=== PATIENT | male | born 1965 | race Caucasian/White ===

== ENCOUNTER → 2018-01-19 10:15 | Outpatient (CLI) | payer OTHER, SELFPAY ==
[2018-01-19 10:21] LABS: Bacteria 0 SEEN /hpf (None Seen); Red Blood Cells-Urine 0 SEEN /hpf (0-5); White Blood Cells 0 SEEN /hpf (0-5)
[2018-01-19 12:33] LABS: Color, Urine Yellow (Yellow); Glucose, Dipstick Normal (Normal); Ketone-Dipstick Negative (Negative); Leukocyte Esterase-Dipstick Negative /ul (Negative); Nitrite-Dipstick Negative (Negative); Occult Blood-Urine Negative /ul (Negative); Protein-Dipstick Negative (Negative); Specific Gravity, Urine 1.025 (1.002-1.030); Urine Bilirubin Dipstick Negative (Negative); Urine Clarity Clear (Clear); Urine Urobilinogen Normal (Normal)
[2018-01-19 12:44] LABS: Absolute Lymphocyte Count 1.28 X10^3/ul (0.83-4.51); Absolute Neutrophil Count 2.6 X10^3/uL (2.0-7.7); Basophil% 2.2 % (0-1); Eosinophil# 0.17 X10^3/uL; Eosinophils% 3.8 % (0-5); Hematocrit 40.4 % (40-54); Hemoglobin 13.8 g/dl (13.0-16.5); Lymphocyte # 1.28 X10^3/ul (4.0); Lymphocyte % 28.3 % (19-41); Mean Corp Hgb Conc 34.2 g/gl (32-36); Mean Corpuscular Hgb 29.2 pg (27.0-32.0); Mean Corpuscular Volume 85.6 fL (80-94); Mean Platelet Vol. 10.3 fl (6.2-12.0); Monocyte# 0.41 X10^3/uL; Monocyte% 9.1 % (0-10); Neutrophil # 2.56 X10^3/uL (2.7-7.7); Neutrophil % 56.6 % (47-70); Platelet Count 246 K/mm3 (150-450); RBC Distribution Width CV 12.9 % (11.6-14.6); RBC Distribution Width SD 39.4 fl (35.1-43.9); Red Blood Count 4.72 M/mm3 (4.6-6.2); White Blood Count 4.5 K/mm3 (4.4-11.0)
[2018-01-19 12:57] LABS: POSITIVE COUNT NO; POSITIVE DIFFERENTIAL NO; POSITIVE MORPHOLOGY NO
[2018-01-19 13:03] LABS: Mucous, Urine RARE /hpf (<or=2+); Squamous Epithelial Cells - UA 0-5 SEEN /hpf (0-5)
[2018-01-19 13:15] LABS: AST(SGOT) 36 U/L (15-37); Alanine Aminotransfer ALT/SGPT 53 U/L (16-61); Albumin, Serum 3.7 g/dL (3.2-5.0); Alkaline Phosphatase 90 U/L (45-117); Anion Gap 7 (5-15); BUN 17 mg/dL (7-18); Calcium,Total 9.1 mg/dL (8.5-10.1); Chloride 106 mmol/L (98-107); Cholesterol 235 mg/dL (200); Creatinine, Serum 0.94 mg/dL (0.70-1.30); EST Glomerular Filtration Rate 89 mL/min (>60); Est Glom Filt Rate - Afr Amer 107 mL/min (>60); Globulin 3.8 g/dL (2.2-4.2); Glucose 96 mg/dL (74-106); High Density Lipoprotein 48 mg/dL; Potassium 4.7 mmol/L (3.5-5.1); Protein, Total 7.5 g/dL (6.4-8.2); Sodium Level 138 mmol/L (136-145); Thyroid Stim Hormone (TSH) 1.42 uIU/mL (0.358-3.74); Triglycerides 168 mg/dL; Very Low Density Lipoprotein 34 mg/dL (5-40)
== END ==
PROVIDERS: Family Provider Family Medicine; PCP Family Medicine; Visit Provider Family Medicine
DX: I10 Essential (primary) hypertension (principal)
CPT/HCPCS: 36415; 80053; 80061; 81001; 84443; 85025

== ENCOUNTER → 2018-01-28 10:29 | Outpatient (CLI) | payer OTHER, SELFPAY ==
--- NOTE | 2018-01-28 10:32 | STE_ITS ---
Reason For Study: ABN. ECG Stress Results Protocol: [facility] Protocol Maximum Predicted HR: 167 bpm Target HR: 142 bpm% Max imum Predicted HR: 93 % DurationHeart Rate Stage (mm:ss) (bpm) BPCom ment BASELINE 61 142/92 3 CC TOTAL DEFINITY USED FOR TEST STAGE 1 3:00 13 4 182/74 STAGE 2 3:00 15 1 220/82 STAGE 3 2:00 15 5 / RECOVERY 90 152/90 Stress Duration: 8:00 mm:ss Maximum Stress HR: 155 bpm Baseline Echocardiogram Findings The estimated ejection fraction is 65 %. Stress Echo Wall motion Data Resting WMIntermediate WMStress WM Resting Wall Motion Wall Motion Stress No regional wall motion No regional wall motion abnormalities noted. abnormalities noted. EKG Data Normal intervals are noted. The patient exercised according to the regular [facility] protocol for a total duration of 8:01. The maximum heart rate attained was 160 beats per minute. This was 95% of maximum predicted heart rate. The patient exercised into stage 3 of the [facility] protocol. During stress, there were no ST or T wave changes noted to suggest ischemia. No clinical angina was noted. Interpretation Summary The estimated ejection fraction is 65 %. Normal adequate treadmill echocardiogram. Negative for ischemia by EKG and echocardiographic criteria. No anginal symptoms noted. Rare PVCs noted. Hypertensive blood pressure response to exercise. Average exercise capacity for age. Final LVEF is 70%, decreased sensitivity due to poor echo windows requiring Definity agent. Test terminated due to fatigue. No complications. Ordering Physician: Rickey Huerta Performed By: Fely Monk, JESUS, RVT
== END ==
PROVIDERS: Family Provider Family Medicine; PCP Family Medicine; Visit Provider Family Medicine
DX: R94.31 Abnormal electrocardiogram [ECG] [EKG] (principal)
CPT/HCPCS: 93017; 93350; Q9957; A4216; C8928

== ENCOUNTER → 2018-03-17 09:16 | Outpatient (CLI) | payer OTHER, SELFPAY ==
[2018-03-17 10:27] LABS: Anion Gap 7 (5-15); BUN 20 mg/dL (7-18); BUN/Creat Ratio 18.7 RATIO (10-20); Calcium,Total 9.5 mg/dL (8.5-10.1); Chloride 104 mmol/L (98-107); Creatinine, Serum 1.07 mg/dL (0.70-1.30); EST Glomerular Filtration Rate 77 mL/min (>60); Est Glom Filt Rate - Afr Amer 93 mL/min (>60); Glucose 95 mg/dL (74-106); Sodium Level 137 mmol/L (136-145)
== END ==
PROVIDERS: Family Provider Family Medicine; PCP Family Medicine; Visit Provider Family Medicine
DX: I10 Essential (primary) hypertension (principal)
CPT/HCPCS: 36415; 80048

== ENCOUNTER → 2018-05-13 10:09 | Outpatient (CLI) | payer OTHER, SELFPAY ==
[2018-05-13 12:23] LABS: Anion Gap 8 (5-15); BUN 22 mg/dL (7-18); BUN/Creat Ratio 24.6 RATIO (10-20); Calcium,Total 9.1 mg/dL (8.5-10.1); Chloride 106 mmol/L (98-107); EST Glomerular Filtration Rate 94 mL/min (>60); Est Glom Filt Rate - Afr Amer 114 mL/min (>60); Glucose 94 mg/dL (74-106); Potassium 3.9 mmol/L (3.5-5.1); Sodium Level 139 mmol/L (136-145)
== END ==
PROVIDERS: Family Provider Family Medicine; PCP Family Medicine; Visit Provider Family Medicine
DX: I10 Essential (primary) hypertension (principal)
CPT/HCPCS: 36415; 80048

== ENCOUNTER → 2018-06-11 08:10 | Outpatient (CLI) | payer OTHER, SELFPAY ==
[2018-06-11 10:56] LABS: BUN 18 mg/dL (7-18); Creatinine, Serum 1.02 mg/dL (0.70-1.30); Glucose 96 mg/dL (74-106)
[2018-06-11 10:57] LABS: Anion Gap 7 (5-15); BUN/Creat Ratio 17.6 RATIO (10-20); Calcium,Total 9.1 mg/dL (8.5-10.1); Chloride 104 mmol/L (98-107); EST Glomerular Filtration Rate 81 mL/min (>60); Est Glom Filt Rate - Afr Amer 98 mL/min (>60); Potassium 3.9 mmol/L (3.5-5.1); Sodium Level 137 mmol/L (136-145)
== END ==
PROVIDERS: Family Provider Family Medicine; PCP Family Medicine; Visit Provider Family Medicine
DX: I10 Essential (primary) hypertension (principal)
CPT/HCPCS: 36415; 80048

== ENCOUNTER 2019-03-05 06:20 | Emergency (ER) | payer OTHER, SELFPAY ==
[2019-03-05 06:22] VITALS: BP 164/105; PULSE 73; RESP 18; TEMP 36.8; O2SAT 97; BMI 34.9
--- NOTE | 2019-03-05 06:39 | CT_ITS ---
STUDY: CT ABDOMEN AND PELVIS WITHOUT CONTRAST REASON FOR EXAM: Male, 53 years old. Left-sided flank pain. RADIATION DOSAGE (If Supplied By Facility): CTDIvol = ( 21.03 ) mGy, DLP = ( 1119.17 ) mGycm TECHNIQUE: Transaxial images were obtained from the dome of the diaphragm to the symphysis pubis without oral contrast, and without intravenous contrast. Sagittal and coronal images were reconstructed. Individualized dose optimization techniques were used for this CT. COMPARISON: None. FINDINGS: The visualized lung bases are unremarkable. The visualized portions of the heart are within normal limits. Normal liver. Normal gallbladder and extrahepatic biliary system. Normal spleen. Normal pancreas. Normal bilateral adrenal glands. There are medullary calcifications. There is a nonobstructing calculus lower pole of the right kidney measuring about 3 mm in size. There is left-sided perinephric stranding. There is mild left-sided hydronephrosis and hydroureter secondary to a mid ureteral calculus measuring approximately 4 mm in greatest dimension. Normal visualized stomach. There is no evidence for dilated bowel, ascites or pneumoperitoneum. The small bowel has a grossly normal appearance. The descending colon is not distended which gives the appearance of thickened arenas. Most of this stool is in the ascending colon and transverse colon. There are scattered colonic diverticula. The appendix is visualized and appears normal. There is mild atherosclerotic calcification of the abdominal aorta with elongation and tortuosity, but without a demonstrated aneurysm. There is venous distention of the inferior vena cava (IVC). Normal retroperitoneum. Normal urinary bladder. Normal visualized prostate gland. There appear to be bilateral inguinal hernias containing fat. There is an umbilical hernia containing fat. There are diffuse degenerative changes of the visualized spine. There is severe acquired canal stenosis at L4-5. CT/Abdomen/Pelvis without Cont IMPRESSION: Mild left-sided hydronephrosis and hydroureter secondary to mid ureteral calculus. Electronically Signed: Taylor Waters MD at 8:12 EDT , Service support ,
[2019-03-05] MEDS: Morphine 4 MG/ML Syringe IV ×2 (06:43→07:52)
[2019-03-05] MEDS: 0.9% Normal Saline 1,000 ML 250 ML IV (06:43)
[2019-03-05] MEDS: Ketorolac 30 MG/ML Syringe IV (06:44)
[2019-03-05] MEDS: Ondansetron 4 MG/2 ML Vial IV (06:44)
--- NOTE | 2019-03-05 06:56 | ED.DCSUM_ITS ---
- ER Visit Summary Date of Service: 03/05/19 Chief Complaint: Left flank pain History of Present Illness: The patient is a 53 M who presents emergency department with left flank pain. Patient states that it was sudden onset this morning after urination. Left flank into left lower quadrant. He has a history of a kidney stone one time. He states this feels similar. No fevers. He notes a history of hypertension. He notes nausea but no vomiting. Physical Examination: Afebrile vital signs are stable Gen: Well-nourished well-developed the patient appears in pain. Head: Normocephalic atraumatic Eyes: Perrl EOMI ENT: TMs clear no rhinorrhea moist mucous membranes Neck: Supple no lymphadenopathy no JVD nontender CVS: Regular rate rhythm no murmurs normal S1-S2 Respiratory: No distress clear to auscultation bilaterally chest nontender Abdomen: Soft nontender nondistended normal bowel sounds no masses Back: Nontender Extremity: Nontender no edema Skin: Normal color no rash Neuro: alert orientated ?3 CN II-XII intact normal strength sensation reflexes gait cerebellar Psych: Normal affect normal mood Test Results: CT flank and BMP and urinalysis were ordered. BMP showed a normal creatinine. CT of the flank demonstrated a mid ureteral stone of about 4-5 mm. Emergency Department Course and Treatment: IV was established the patient received IV fluids Toradol morphine and Zofran. Impression: 1. Left flank pain 2. Left ureterolithiasis This note was generated with [employer] dictation software. It may contain incorrect words, spelling, and punctuation that were not noted in review of the chart prior to signing ED Disposition - Plan for ED Patient: Disposition: Home or Assisted Living Instructions: ED Stone Renal W Colic Prescriptions: Hydrocodone Bitart/Apap 5-325 [[place] 5MG-325MG] 1 tab PO Q6H PRN PRN 3 Days #12 tab PRN Reason: Pain Ondansetron [Zofran Odt] 4 mg PO Q6H PRN PRN #10 tab PRN Reason: Nausea Referrals: Rickey Huerta MD [Primary Care Provider] - 3-5 Days if not improving Kam Marrufo MD [STAFF PHYSICIAN] - (for urology)
[2019-03-05 06:57] LABS: Anion Gap 5 (5-15); BUN 22 mg/dL (7-18); BUN/Creat Ratio 20.8 RATIO (10-20); Calcium,Total 8.4 mg/dL (8.5-10.1); Chloride 107 mmol/L (98-107); Creatinine, Serum 1.06 mg/dL (0.70-1.30); EST Glomerular Filtration Rate 77 mL/min (>60); Est Glom Filt Rate - Afr Amer 93 mL/min (>60); Estimated Creatinine Clearance 82.26 ml/min; Glucose 116 mg/dL (74-106); Potassium 3.6 mmol/L (3.5-5.1); Sodium Level 138 mmol/L (136-145)
[2019-03-05 08:46] LABS: Mucous, Urine 0 SEEN /hpf (<or=2+); Squamous Epithelial Cells - UA 0 SEEN /hpf (0-5)
[2019-03-05 08:59] LABS: Color, Urine Yellow (Yellow); Glucose, Dipstick Normal (Normal); Ketone-Dipstick 15 mg/dl (Negative); Leukocyte Esterase-Dipstick 25 /ul (Negative); Nitrite-Dipstick Positive (Negative); Occult Blood-Urine 250 /ul (Negative); Protein-Dipstick 100 mg/dl (Negative); Specific Gravity, Urine 1.025 (1.002-1.030); Urine Clarity Cloudy (Clear); Urine Urobilinogen 1 mg/dl (Normal)
[2019-03-05 09:04] LABS: Urine Bilirubin Dipstick 1 mg/dL (Negative)
[2019-03-05 09:09] VITALS: BP 147/103; PULSE 75; RESP 18; O2SAT 97
[2019-03-05 09:13] LABS: Bacteria 1+ /hpf (None Seen); Red Blood Cells-Urine > 100 SEEN /hpf (0-5); White Blood Cells 10-25 SEEN /hpf (0-5)
[2019-03-05] MEDS: Ceftriaxone 1 GM/50 ML BAG IV (09:24)
--- NOTE | 2019-03-05 10:09 | ED.VISSUMM ---
- ER Visit Summary Date of Service: 03/05/19 Chief Complaint: [Addendum to initial dictation by Dr. Neil Carrizales] History of Present Illness: The patient is a 53 M [presented with flank pain that started this morning. Patient was fully evaluated by Dr. Carrizales who obtained lab work as well as ordered a urine and CT scan of the flank. It was noted on the CT scan that patient had a 4 mm left mid ureteral stone with mild hydronephrosis. Urinalysis was eventually obtained that was positive for nitrites as well as greater than 100 RBCs and 10-25 WBCs and +1 bacteria.] Physical Examination: [] Test Results: [] Emergency Department Course and Treatment: [] Treatment Plan: [Patient was given Rocephin 1 g IV. Patient was given a repeat dose of morphine 4 mg IV as his pain did return. I had a discussion with the patient regarding admission for pain control versus home and at this point he is rating his pain a 1 out of 10 and would like to try to go home and see if he can pass the stone on his own. I will start patient on Bactrim and patient also was written for Zofran and [place]. Patient advised to return if worsening pain, fever, vomiting, or condition should worsen anyway.] Disposition: [Discharged home in stable condition] Impression: [Kidney stone with colic UTI] This note was generated with [employer] dictation software. It may contain incorrect words, spelling, and punctuation that were not noted in review of the chart prior to signing ED Disposition - Plan for ED Patient: Disposition: Home or Assisted Living Instructions: ED Stone Renal W Colic Prescriptions: Hydrocodone Bitart/Apap 5-325 [[place] 5MG-325MG] 1 tab PO Q6H PRN PRN 3 Days #12 tab PRN Reason: Pain Ondansetron [Zofran Odt] 4 mg PO Q6H PRN PRN #10 tab PRN Reason: Nausea Referrals: Kam Marrufo MD [STAFF PHYSICIAN] - (for urology) Rickey Huerta MD [Primary Care Provider] - 3-5 Days if not improving
--- NOTE | 2019-03-05 10:12 | DCINST.ED_ITS ---
ED Disposition - Plan for ED Patient: Disposition: Home or Assisted Living Instructions: ED Stone Renal W Colic Prescriptions: Hydrocodone Bitart/Apap 5-325 [[place] 5MG-325MG] 1 tab PO Q6H PRN PRN 3 Days #12 tab PRN Reason: Pain Ondansetron [Zofran Odt] 4 mg PO Q6H PRN PRN #10 tab PRN Reason: Nausea Smz/Tmp Ds [Bactrim Ds] 1 tab PO BID #14 tab Referrals: Kam Marrufo MD [STAFF PHYSICIAN] - (for urology) Rickey Huerta MD [Primary Care Provider] - 3-5 Days if not improving
--- NOTE | 2019-03-05 10:12 | ED.DCSUM_ITS ---
- ER Visit Summary Date of Service: 03/05/19 Chief Complaint: [Addendum to initial dictation by Dr. Neil Carrizales] History of Present Illness: The patient is a 53 M [presented with flank pain that started this morning. Patient was fully evaluated by Dr. Carrizales who obtained lab work as well as ordered a urine and CT scan of the flank. It was noted on the CT scan that patient had a 4 mm left mid ureteral stone with mild hydronephrosis. Urinalysis was eventually obtained that was positive for nitrites as well as greater than 100 RBCs and 10-25 WBCs and +1 bacteria.] Physical Examination: [] Test Results: [] Emergency Department Course and Treatment: [] Treatment Plan: [Patient was given Rocephin 1 g IV. Patient was given a repeat dose of morphine 4 mg IV as his pain did return. I had a discussion with the patient regarding admission for pain control versus home and at this point he is rating his pain a 1 out of 10 and would like to try to go home and see if he can pass the stone on his own. I will start patient on Bactrim and patient also was written for Zofran and [place]. Patient advised to return if worsening pain, fever, vomiting, or condition should worsen anyway.] Disposition: [Discharged home in stable condition] Impression: [Kidney stone with colic UTI] This note was generated with [employer] dictation software. It may contain incorrect words, spelling, and punctuation that were not noted in review of the chart prior to signing ED Disposition - Plan for ED Patient: Disposition: Home or Assisted Living Instructions: ED Stone Renal W Colic Prescriptions: Hydrocodone Bitart/Apap 5-325 [[place] 5MG-325MG] 1 tab PO Q6H PRN PRN 3 Days #12 tab PRN Reason: Pain Ondansetron [Zofran Odt] 4 mg PO Q6H PRN PRN #10 tab PRN Reason: Nausea Referrals: Kam Marrufo MD [STAFF PHYSICIAN] - (for urology) Rickey Huerta MD [Primary Care Provider] - 3-5 Days if not improving
[2019-03-05 10:33] VITALS: BP 146/99; PULSE 66; RESP 17; O2SAT 95
--- NOTE | 2019-03-05 10:34 | ED.RN ---
IV DC'ED, CATHETER INTACT, SMALL GAUZE DRESSING PLACED. DISCHARGE INSTRUCTIONS GIVEN TO AND REVIEWED WITH PATIENT, PATIENT DENIES QUESTIONS OR CONCERNS AND VOICES UNDERSTANDING OF DISCHARGE INSTRUCTIONS. PT AMBULATES OUT OF ROOM WITHOUT DIFFICULTY.
== END 2019-03-05 10:35 | disposition home or self-care (01) ==
PROVIDERS: Emergency Provider Emergency Medicine; Family Provider Family Medicine; PCP Family Medicine
DX: N13.2 Hydronephrosis with renal and ureteral calculous obstruction (principal); I10 Essential (primary) hypertension; Z87.442 Personal history of urinary calculi
CPT/HCPCS: 74176; 80048; 81001; 87086; 87088; 96365; 96375; 96376; 99282; J7030; A4216; J2405

== ENCOUNTER → 2019-03-18 | Outpatient (CLI) | payer OTHER, SELFPAY ==
[2019-03-05 06:22] VITALS: BMI 34.9
[2019-03-18 10:53] LABS: ALB/GLOB Ratio 1.2 RATIO (0.9-2.4); AST(SGOT) 35 U/L (15-37); Alanine Aminotransfer ALT/SGPT 45 U/L (16-61); Albumin, Serum 3.8 g/dL (3.2-5.0); Alkaline Phosphatase 90 U/L (45-117); Anion Gap 6 (5-15); BUN 23 mg/dL (7-18); BUN/Creat Ratio 24.8 RATIO (10-20); Calcium,Total 9.1 mg/dL (8.5-10.1); Chloride 104 mmol/L (98-107); Creatinine, Serum 0.93 mg/dL (0.70-1.30); EST Glomerular Filtration Rate 90 mL/min (>60); Est Glom Filt Rate - Afr Amer 109 mL/min (>60); Globulin 3.2 g/dL (2.2-4.2); Glucose 96 mg/dL (74-106); Potassium 4.3 mmol/L (3.5-5.1); Sodium Level 135 mmol/L (136-145)
== END | disposition home or self-care (01) ==
LOC: MFPLAB 08:50
PROVIDERS: Family Provider Family Medicine; PCP Family Medicine; Referring Provider Family Medicine; Visit Provider Family Medicine
DX: I10 Essential (primary) hypertension (principal)
CPT/HCPCS: 36415; 80053; 83735

== ENCOUNTER 2019-07-13 08:05 | Emergency (ER) | payer OTHER, SELFPAY ==
[2019-07-13 08:06] VITALS: BP 157/89; PULSE 77; RESP 16; TEMP 36.6; O2SAT 99; BMI 34.4
--- NOTE | 2019-07-13 08:21 | CT_ITS ---
STUDY: CT ABDOMEN AND PELVIS WITHOUT CONTRAST REASON FOR EXAM: Male, 54 years old. Renal colic on the left RADIATION DOSAGE (If Supplied By Facility): CTDIvol = ( 18.60 ) mGy, DLP = ( 980.77 ) mGycm TECHNIQUE: Transaxial images were obtained from the dome of the diaphragm to the symphysis pubis without oral contrast, and without intravenous contrast. Sagittal and coronal images were reconstructed. Individualized dose optimization techniques were used for this CT. COMPARISON: 03/05/2019. FINDINGS: The visualized lung bases are unremarkable. The visualized portions of the heart are within normal limits. Normal liver. Normal gallbladder and extrahepatic biliary system. Normal spleen. Normal pancreas. Normal bilateral adrenal glands. Normal right kidney.igLeft obstructive uropathy due to 4.7 mm stone along the distal ureter, aboutreter, about 1.6 cm proximal to the UVJ, with mild left hydroureteronephrosis and mild to moderate left perinephric infiltration. Bilateral medullary nephrocalcinosis of the kidneys. Normal visualizeNormal small intestine.l intestine. Uncomplicated colonic diverticulosis of colon. The appendix is visualized and appears normal. Mild calcification of the abdomiNormal inferior vena cava.r Normal retroperitoneum.operitoneum. Normal urinar ladder There is a small umbilical hernia containing fat. There are diffuse degenerative changes of the visualized lumbar spine. CT/Abdomen/Pelvis without Cont IMPRESSION: Left obstructive uropathy due to 4.7 mm stone along the distal ureter, about 1.6 cm proximal to the UVJ, with mild left hydroureteronephrosis and mild to moderate left perinephric infiltration. Bilateral medullary nephrocalcinosis of the kidneys. Appendix is normal. Uncomplicated colonic diverticulosis. Electronically Signed: Luis Daniel Blake MD at 9:30 EDT Tel [phone], Service support ,
--- NOTE | 2019-07-13 08:30 | ED.DCSUM_ITS ---
- ER Visit Summary Date of Service: 07/13/19 Chief Complaint: Left flank pain History of Present Illness: The patient is a [address] Huerta. He reports that he has left flank pain that began at 330 this morning. It began abruptly. It is an aching pain is 7 out of 10 severity currently and at worst. States the pain is worsened by moving and relieved by nothing. Has had nausea and diaphoresis with this. Is not vomited. No diarrhea. His last bowel movement was yesterday. No melena or hematochezia. He does report he had dysuria and frequency with this. He denies any hematuria. Physical Examination: Vitals: Stable. Afebrile. General: Well-nourished and well-developed. Head: Normocephalic atraumatic. Neck: Supple, no lymphadenopathy. No JVD. Nontender. Cardiovascular: Regular rate and rhythm. No murmurs. Respiratory: No respiratory distress. Clear to auscultation bilaterally. Abdominal: Soft, mild left lower quadrant tenderness to palpation, nondistended, normal bowel sounds. No guarding, rebound, or peritoneal signs. Back: Mild left CVA tenderness. Extremities: Nontender, no edema. Skin: Normal color, no rash. Neurologic: Alert and oriented ?3. Cranial nerves II through XII are intact. Normal strength and sensation. Psych: Normal affect. Test Results: UA shows no evidence of infection. Clinical Impression(s) from Imaging Studies Abdomen/Pelvis CT 07/13/19 08:21 IMPRESSION: Left obstructive uropathy due to 4.7 mm stone along the distal ureter, about 1.6 cm proximal to the UVJ, with mild left hydroureteronephrosis and mild to moderate left perinephric infiltration. Bilateral medullary nephrocalcinosis of the kidneys. Appendix is normal. Uncomplicated colonic diverticulosis. Electronically Signed: Luis Daniel Blake MD at 9:30 EDT Tel [phone], Service support , Emergency Department Course and Treatment: Patient had an IV placed. He was given a liter normal saline. He was given Toradol, Zofran, morphine IV. He is resting more comfortably. Treatment Plan: Patient will be discharged with Zofran, naproxen, Percocet, and Flomax. He will also be given a urine strainer. Instructed to follow-up with Dr. Marrufo in 1 week if not improving. Return to the emergency department for any worsening symptoms. Disposition: To home in improved and stable condition. Impression: 1. Left ureterolithiasis. This note was generated with [employer] dictation software. It may contain incorrect words, spelling, and punctuation that were not noted in review of the chart prior to signing ED Disposition - Plan for ED Patient: Instructions: KIDNEY STONE w/ Colic Prescriptions: Tamsulosin HCl [Flomax] 0.4 mg PO DAILY #7 cap Prescription Printed Naproxen [Naprosyn] 500 mg PO BID #14 tab Prescription Printed Oxycodone HCl/Acetaminophen [Percocet 5/325] 1 tab PO Q6H PRN PRN 5 Days #20 tab PRN Reason: Pain Prescription Printed Ondansetron [Zofran Odt] 4 mg PO Q8H PRN PRN #10 tab PRN Reason: Nausea Prescription Printed Referrals: Kam Marrufo MD [STAFF PHYSICIAN] - 1 Week if not improving
[2019-07-13] MEDS: Ondansetron 4 MG/2 ML Vial IV (08:40)
[2019-07-13] MEDS: Ketorolac 30 MG/ML Syringe IV (08:40)
[2019-07-13] MEDS: Morphine 4 MG/ML Syringe IV (08:43)
[2019-07-13] MEDS: 0.9% Normal Saline 1,000 ML 250 ML IV (08:44)
[2019-07-13 09:01] LABS: Color, Urine Yellow (Yellow); Glucose, Dipstick Normal (Normal); Ketone-Dipstick 5 mg/dl (Negative); Leukocyte Esterase-Dipstick Negative /ul (Negative); Nitrite-Dipstick Negative (Negative); Occult Blood-Urine 10 /ul (Negative); Protein-Dipstick 15 mg/dl (Negative); Specific Gravity, Urine 1.025 (1.002-1.030); Urine Bilirubin Dipstick Negative (Negative); Urine Clarity Clear (Clear); Urine Urobilinogen Normal (Normal)
[2019-07-13 09:17] LABS: Bacteria 2+ /hpf (None Seen); Red Blood Cells-Urine 0-5 SEEN /hpf (0-5); Squamous Epithelial Cells - UA 0-5 SEEN /hpf (0-5); White Blood Cells 0-5 SEEN /hpf (0-5)
[2019-07-13 09:18] LABS: Mucous, Urine 3+ /hpf (<or=2+)
[2019-07-13 10:11] VITALS: BP 131/71; PULSE 63; RESP 16; O2SAT 100
== END 2019-07-13 10:14 | disposition home or self-care (01) ==
PROVIDERS: Emergency Provider Emergency Medicine; Family Provider Family Medicine; PCP Family Medicine
DX: N13.2 Hydronephrosis with renal and ureteral calculous obstruction (principal); E83.59 Other disorders of calcium metabolism; N29 Other disorders of kidney and ureter in diseases classified elsewhere; K57.30 Diverticulosis of large intestine without perforation or abscess without bleeding; Z87.442 Personal history of urinary calculi
CPT/HCPCS: 74176; 81001; 96361; 96374; 96375; 99284; J7030; A4216; J2405

== ENCOUNTER → 2019-08-18 08:57 | Outpatient (CLI) | payer OTHER, SELFPAY ==
--- NOTE | 2019-08-18 09:00 | RAD_ITS ---
STUDY: X-RAY - ABDOMEN/PELVIS REASON FOR EXAM: Male, 54 years old. Left renal calculus. TECHNIQUE: Single AP view of the abdomen / pelvis. COMPARISON: Comparison is made with prior CT scan and pelvis dated July 13, 2019. FINDINGS: Normal visualized lung bases. There is a moderate amount of colonic fecal material. A 4 mm calcification is seen in the left hemipelvis. This may lie within this portion left ureter. A rounded phlebolith is seen in the right hemipelvis. Normal soft tissue structures. Normal visualized osseous structures. RAD/Abdomen Single View IMPRESSION: Findings suggestive of a small calculus in the distal portion of the left ureter. Electronically Signed: Santo Mack, at 11:00 EDT , Service support ,
== END ==
PROVIDERS: Family Provider Family Medicine; PCP Family Medicine; Referring Provider Nurse Practitioner Adult Health; Visit Provider Nurse Practitioner Adult Health
DX: N20.1 Calculus of ureter (principal)
CPT/HCPCS: 74018

== ENCOUNTER 2019-08-26 13:25 | Day surgery (SDC) | payer OTHER, SELFPAY ==
[2019-08-26] VITALS (8 sets, daily range): BP systolic 120–128; BP diastolic 84–98; PULSE 68–90; RESP 16; TEMP 36.3–36.6; O2SAT 93–97; BMI 35.6
--- NOTE | 2019-08-26 11:30 | RAD_ITS ---
STUDY: X-RAY - ABDOMEN/PELVIS REASON FOR EXAM: Male, 54 years old. History of left-sided kidney stone. TECHNIQUE: Single AP view of the abdomen / pelvis. COMPARISON: Comparison is made with prior examination dated August 18, 2019. FINDINGS: Normal visualized lung bases. There is an unremarkable bowel gas pattern. The visualized liver, spleen and kidneys are grossly normal in size and morphology. Stable appearance of the small calcific densities in the pelvis. Normal visualized osseous structures. RAD/Abdomen Single View IMPRESSION: Stable examination. Electronically Signed: Santo Mack, at 15:24 EDT , Service support ,
[2019-08-26] MEDS: Lactated Ringers 1,000 ML 100 ML IV (14:58)
[2019-08-26] MEDS: Cefazolin 2 GM in 0.9% Normal Saline 100 ML IV (15:19)
--- NOTE | 2019-08-26 16:18 | DCINST_ITS ---
Discharge Diet: Light diet - advance as tolerated Discharge Activity: Return to Normal Activity Call your doctor if your incision/area has: Sudden Increased Bleeding Allergies/Adverse Reactions: Allergies No Known Allergies Allergy (Verified 08/26/19 14:16) Medications to take at Discharge Lisinopril [Zestril] 10 mg PO DAILY 10/28/16 Hydrochlorothiazide [Hctz] 25 mg PO DAILY 03/05/19 Calcium Carbonate/Simethicone [[place] Heartburn+Gas] 1 ea PO DAILY PRN PRN 08/26/19 Oxycodone HCl/Acetaminophen [Percocet 5/325] 1 tab PO Q4H PRN PRN 3 Days tab 08/26/19 The following prescriptions were given: Oxycodone HCl/Acetaminophen [Percocet 5/325] 1 tab PO Q4H PRN PRN 3 Days tab PRN Reason: Pain Prescription Printed Primary Care Physician: Rickey Huerta MD [Primary Care Provider] - Test Results: Test results from this visit will be discussed in further detail at your follow- up appointment, if applicable. Please Follow Up With: Kam Marrufo MD When: in 2 weeks, please call to make an appointment.
--- NOTE | 2019-08-26 16:19 | OP.PCM_ITS ---
Report of Operation Date of Procedure: 08/26/19 Pre-Operative Diagnosis: Left ureteral calculi Post-Operative Diagnosis: Same Surgery/Procedure Performed:: Cystoscopy placement of left ureteral catheter and left ESWL no stent Description of Surgical Findings:: 54-year-old male taken back to the operating room at the smooth induction of general anesthesia he was placed in dorsolithotomy position went to the bladder with a 21 [place] rigid cystourethroscope entire length urethra is normal prostate was normal I think cannulated the left ureteral orifice with a Glidewire advance a wire up in the kidney we can confirm the stone in the distal pelvis we then proceeded with shockwave lithotripsy and we treated the stone 3000 shockwaves at a rate of 90 up to 7 kV the stone broke up really well ,remove the wire, drained the bladder, patient anesthetic was reversed appeared to be a successful treatment of the stone no stent was placed taken back to PACU in good condition we will see him back in a few weeks with a checkup. Type of Anesthesia:: General
== END 2019-08-26 17:51 | disposition home or self-care (01) ==
LOC: SDC 13:25 → AC 13:49
PROVIDERS: Family Provider Family Medicine; PCP Family Medicine; Referring Provider Urology; Visit Provider Urology
PROC: (CPT 50590; principal; 2019-08-26 15:00)
DX: N20.1 Calculus of ureter (principal); Z87.442 Personal history of urinary calculi; I10 Essential (primary) hypertension; Z79.899 Other long term (current) drug therapy
CPT/HCPCS: 00873; 50590; 74018; J7120; C1769; J2405

== ENCOUNTER → 2019-09-12 15:20 | Outpatient (CLI) | payer OTHER, SELFPAY ==
[2019-08-26 14:17] VITALS: BMI 35.6
--- NOTE | 2019-09-12 15:23 | RAD_ITS ---
STUDY: X-RAY - ABDOMEN/PELVIS REASON FOR EXAM: Male, 54 years old. Left-sided flank pain TECHNIQUE: AP supine and upright views of the abdomen and pelvis. COMPARISON: 08/26/2019 FINDINGS: Normal visualized lung bases. There is an unremarkable bowel gas pattern. There is no demonstrated free abdominal air. The visualized liver, spleen and kidneys are grossly normal in size and morphology. No demonstrated calcifications over either renal shadow, there is a stable lucent centered calcification in the right hemipelvis which could be within the distal right ureter. A previously described stone in the left hemipelvis no longer identified which may have passed. Normal soft tissue structures. There are diffuse degenerative changes of the visualized lumbar spine. RAD/Abdomen Single View IMPRESSION: Possible right ureterolithiasis No interval change since the previous study Electronically Signed: Reji Frazier MD at 11:02 EDT , Service support ,
[2019-09-12 16:42] LABS: Anion Gap 7 (5-15); BUN 18 mg/dL (7-18); Calcium,Total 9.3 mg/dL (8.5-10.1); Chloride 104 mmol/L (98-107); EST Glomerular Filtration Rate 82 mL/min (>60); Est Glom Filt Rate - Afr Amer 100 mL/min (>60); Glucose 118 mg/dL (74-106); Potassium 3.6 mmol/L (3.5-5.1); Sodium Level 138 mmol/L (136-145)
== END ==
PROVIDERS: Family Provider Family Medicine; PCP Family Medicine; Referring Provider Urology; Visit Provider Urology
DX: N20.0 Calculus of kidney (principal)
CPT/HCPCS: 36415; 74018; 80048

== ENCOUNTER → 2019-09-13 08:25 | Outpatient (CLI) | payer OTHER, SELFPAY ==
[2019-08-26 14:17] VITALS: BMI 35.6
[2019-09-13 11:01] LABS: Hemoglobin A1c 6.1 % (4.2-6.3)
== END ==
PROVIDERS: Family Provider Family Medicine; PCP Family Medicine; Referring Provider Family Medicine; Visit Provider Family Medicine
DX: R73.09 Other abnormal glucose (principal)
CPT/HCPCS: 36415; 83036

== ENCOUNTER 2019-09-15 18:07 | Emergency (ER) | payer OTHER, SELFPAY ==
[2019-08-26 14:17] VITALS: BMI 35.6
[2019-09-15 18:08] VITALS: BP 155/92; PULSE 99; RESP 16; TEMP 36.7; O2SAT 96; BMI 35.9
--- NOTE | 2019-09-15 20:20 | ED.DCSUM_ITS ---
- ER Visit Summary Date of Service: 09/15/19 Chief Complaint: [Right eye foreign body sensation] History of Present Illness: The patient is a 54 M [Zentz to the emergency department stating that he was working on a faucet at his home using a type of back grinder. Patient was working with wood and thinks he got sawdust around his goggles that he was wearing. Patient complains of foreign body sensation. Patient complains of tearing and photophobia. Patient is up-to-date on tetanus. He denies visual changes.] Physical Examination: [Right eye-patient has diffuse conjunctival erythema. Pupils are equal react light bilaterally. Eyelids everted no foreign bodies noted. Extraocular muscle movement is normal.] Test Results: [None indicated] Emergency Department Course and Treatment: [Patient had tetracaine placed to the right eye. Patient had floor seen instilled into the right eye and he had a corneal abrasion noted at the 11 o'clock position on the cornea. No foreign bodies noted within the cornea.] Patient had gentamicin ophthalmic ointment placed to the right eye and he had an eye patch applied. Treatment Plan: [Follow-up with ophthalmology tomorrow.] Disposition: [Discharged home in stable condition.] Impression: [Corneal abrasion right eye] This note was generated with [employer] dictation software. It may contain incorrect words, spelling, and punctuation that were not noted in review of the chart prior to signing ED Disposition - Plan for ED Patient: Referrals: Rickey Huerta MD [Primary Care Provider] -
--- NOTE | 2019-09-15 20:23 | DCINST.ED_ITS ---
ED Disposition - Plan for ED Patient: Instructions: ED Corneal Abrasion Prescriptions: Hydrocodone Bitart/Apap 5-325 [[place] 5MG-325MG] 1 tab PO Q4H PRN PRN 2 Days #10 tab PRN Reason: Pain Prescription Printed Referrals: Rickey Huerta MD [Primary Care Provider] - Steve Joseph MD [STAFF PHYSICIAN] - 1 Day for another exam
[2019-09-15 20:39] VITALS: BP 136/74; PULSE 81; RESP 18; O2SAT 98
[2019-09-15] MEDS: Tetracaine 0.5% Ophthalmic Bottle 1 DRP RIGHT EYE (20:39)
== END 2019-09-15 20:40 | disposition home or self-care (01) ==
LOC: ED 20:23
PROVIDERS: Emergency Provider Emergency Medicine; Family Provider Family Medicine; PCP Family Medicine
DX: S05.01XA Injury of conjunctiva and corneal abrasion without foreign body, right eye, initial encounter (principal); X58.XXXA Exposure to other specified factors, initial encounter; Y93.9 Activity, unspecified; Y92.9 Unspecified place or not applicable
CPT/HCPCS: 99282

== ENCOUNTER → 2020-02-23 09:28 | Outpatient (CLI) | payer OTHER, SELFPAY ==
[2020-02-23 09:57] LABS: Absolute Lymphocyte Count 1.39 X10^3/uL (0.83-4.51); Absolute Neutrophil Count 3.6 X10^3/uL (2.0-7.7); Basophil# 0.08 X10^3/uL; Basophil% 1.3 % (0-1); Eosinophil# 0.39 X10^3/uL; Eosinophils% 6.6 % (0-5); Hematocrit 38.4 % (40-54); Hemoglobin 13.1 g/dL (13.0-16.5); Lymphocyte # 1.39 X10^3/ul (4.0); Lymphocyte % 23.4 % (19-41); Mean Corp Hgb Conc 34.1 g/dL (32-36); Mean Corpuscular Hgb 29.8 pg (27.0-32.0); Mean Corpuscular Volume 87.5 fL (80-94); Mean Platelet Vol. 9.7 fl (6.2-12.0); Monocyte# 0.51 X10^3/uL; Monocyte% 8.6 % (0-10); NRBC Flagged by Analyzer 0 % (0-5); Neutrophil # 3.55 X10^3/uL (2.7-7.7); Neutrophil % 59.9 % (47-70); Platelet Count 263 K/mm3 (150-450); RBC Distribution Width CV 12.6 % (11.6-14.6); RBC Distribution Width SD 40.6 fl (35.1-43.9); Red Blood Count 4.39 M/mm3 (4.6-6.2); White Blood Count 5.9 K/mm3 (4.4-11.0)
[2020-02-23 10:26] LABS: ALB/GLOB Ratio 1.2 RATIO (0.9-2.4); AST(SGOT) 32 U/L (15-37); Alanine Aminotransfer ALT/SGPT 38 U/L (16-61); Albumin, Serum 3.7 g/dL (3.2-5.0); Alkaline Phosphatase 79 U/L (45-117); Anion Gap 8 (5-15); BUN 19 mg/dL (7-18); BUN/Creat Ratio 19.6 RATIO (10-20); Calcium,Total 8.9 mg/dL (8.5-10.1); Chloride 105 mmol/L (98-107); Creatinine, Serum 0.97 mg/dL (0.70-1.30); EST Glomerular Filtration Rate 85 mL/min (>60); Est Glom Filt Rate - Afr Amer 103 mL/min (>60); Globulin 3.2 g/dL (2.2-4.2); Glucose 94 mg/dL (74-106); Protein, Total 6.9 g/dL (6.4-8.2); Sodium Level 138 mmol/L (136-145)
[2020-02-23 11:23] LABS: Hemoglobin A1c 5.6 % (4.2-6.3)
== END ==
PROVIDERS: PCP Family Medicine; Referring Provider Family Medicine; Visit Provider Family Medicine
DX: I10 Essential (primary) hypertension (principal); R73.02 Impaired glucose tolerance (oral)
CPT/HCPCS: 36415; 80053; 83036; 85025

== ENCOUNTER → 2020-08-24 08:54 | Outpatient (CLI) | payer OTHER, SELFPAY ==
[2020-08-24 08:57] LABS: Bacteria 0 SEEN /hpf (None Seen); Mucous, Urine 0 SEEN /hpf (<or=2+); Red Blood Cells-Urine 0 SEEN /hpf (0-5); Squamous Epithelial Cells - UA 0 SEEN /hpf (0-5); White Blood Cells 0 SEEN /hpf (0-5)
[2020-08-24 10:21] LABS: Color, Urine Yellow (Yellow); Glucose, Dipstick Normal (Normal); Ketone-Dipstick Negative (Negative); Leukocyte Esterase-Dipstick Negative /ul (Negative); Nitrite-Dipstick Negative (Negative); Occult Blood-Urine Negative /ul (Negative); Protein-Dipstick Negative (Negative); Urine Bilirubin Dipstick Negative (Negative); Urine Clarity Clear (Clear); Urine Urobilinogen Normal (Normal); Urine pH 6.5 (5.0 - 8.0)
[2020-08-24 10:40] LABS: Hemoglobin A1c 5.6 % (3.8-5.6)
[2020-08-24 10:41] LABS: BUN 20 mg/dL (7-18); Creatinine, Serum 1.04 mg/dL (0.70-1.30); Glucose 97 mg/dL (74-106)
[2020-08-24 10:42] LABS: ALB/GLOB Ratio 0.9 RATIO (0.9-2.4); AST(SGOT) 33 U/L (15-37); Alanine Aminotransfer ALT/SGPT 41 U/L (16-61); Albumin, Serum 3.6 g/dL (3.2-5.0); Alkaline Phosphatase 82 U/L (45-117); Anion Gap 5 (5-15); BUN/Creat Ratio 19.2 RATIO (10-20); Calcium,Total 9.8 mg/dL (8.5-10.1); Chloride 103 mmol/L (98-107); EST Glomerular Filtration Rate 78 mL/min (>60); Est Glom Filt Rate - Afr Amer 95 mL/min (>60); Potassium 3.8 mmol/L (3.5-5.1); Protein, Total 7.6 g/dL (6.4-8.2); Sodium Level 134 mmol/L (136-145)
== END ==
PROVIDERS: PCP Family Medicine; Referring Provider Family Medicine; Visit Provider Family Medicine
DX: I10 Essential (primary) hypertension (principal); R73.02 Impaired glucose tolerance (oral)
CPT/HCPCS: 36415; 80053; 81001; 83036

== ENCOUNTER → 2021-02-27 09:24 | Outpatient (CLI) | payer OTHER, SELFPAY ==
[2021-02-27 10:21] LABS: Absolute Lymphocyte Count 1.67 X10^3/uL (0.83-4.51); Absolute Neutrophil Count 2.3 X10^3/uL (2.0-7.7); Eosinophil# 0.25 X10^3/uL; Hematocrit 39.2 % (40-54); Lymphocyte # 1.67 X10^3/ul (4.0); Lymphocyte % 33.7 % (19-41); Mean Corp Hgb Conc 33.2 g/dL (32-36); Mean Corpuscular Hgb 29.5 pg (27.0-32.0); Mean Corpuscular Volume 89.1 fL (80-94); Mean Platelet Vol. 9.8 fl (6.2-12.0); Monocyte# 0.63 X10^3/uL; Monocyte% 12.7 % (0-10); NRBC Flagged by Analyzer 0 % (0-5); Neutrophil % 46.4 % (47-70); Platelet Count 283 K/mm3 (150-450); RBC Distribution Width CV 12.9 % (11.6-14.6)
[2021-02-27 10:51] LABS: Hemoglobin A1c 5.7 % (3.8-5.6)
[2021-02-27 10:52] LABS: ALB/GLOB Ratio 0.9 RATIO (0.9-2.4); AST(SGOT) 42 U/L (15-37); Alanine Aminotransfer ALT/SGPT 42 U/L (16-61); Albumin, Serum 3.5 g/dL (3.2-5.0); Alkaline Phosphatase 91 U/L (45-117); Anion Gap 6 (5-15); BUN 23 mg/dL (7-18); BUN/Creat Ratio 25.2 RATIO (10-20); Calcium,Total 9.9 mg/dL (8.5-10.1); Chloride 105 mmol/L (98-107); Cholesterol 235 mg/dL (200); Creatinine, Serum 0.91 mg/dL (0.70-1.30); EST Glomerular Filtration Rate 91 mL/min (>60); Est Glom Filt Rate - Afr Amer 110 mL/min (>60); Globulin 3.7 g/dL (2.2-4.2); Glucose 89 mg/dL (74-106); High Density Lipoprotein 56 mg/dL; PSA,Total - Annual Screen 1.23 ng/mL (0.00-4.00); Potassium 3.8 mmol/L (3.5-5.1); Protein, Total 7.2 g/dL (6.4-8.2); Sodium Level 138 mmol/L (136-145); Thyroid Stim Hormone (TSH) 1.25 uIU/mL (0.358-3.74); Triglycerides 114 mg/dL; Very Low Density Lipoprotein 23 mg/dL (5-40)
== END ==
PROVIDERS: PCP Family Medicine; Referring Provider Family Medicine; Visit Provider Family Medicine
DX: I10 Essential (primary) hypertension (principal); Z12.5 Encounter for screening for malignant neoplasm of prostate; R73.02 Impaired glucose tolerance (oral)
CPT/HCPCS: 36415; 80053; 80061; 83036; 84153; 84443; 85025; G0103

== ENCOUNTER 2021-12-02 08:57 | Outpatient (CLI) | payer OTHER, SELFPAY ==
[2021-12-02 10:01] LABS: Color, Urine Yellow (Yellow); Glucose, Dipstick Normal (Normal); Ketone-Dipstick Negative (Negative); Leukocyte Esterase-Dipstick Negative /ul (Negative); Nitrite-Dipstick Negative (Negative); Occult Blood-Urine Negative /ul (Negative); Protein-Dipstick Negative (Negative); Specific Gravity, Urine 1.015 (1.002-1.030); Urine Bilirubin Dipstick Negative (Negative); Urine Clarity Clear (Clear); Urine Urobilinogen Normal (Normal); Urine pH 6.5 (5.0 - 8.0)
[2021-12-02 10:01] LABS: Absolute Neutrophil Count 2.1 X10^3/uL (2.0-7.7); Basophil# 0.07 X10^3/uL; Basophil% 1.6 % (0-1); Eosinophil# 0.36 X10^3/uL; Eosinophils% 8.1 % (0-5); Hematocrit 38.4 % (40-54); Hemoglobin 12.8 g/dL (13.0-16.5); Lymphocyte % 31.7 % (19-41); Mean Corp Hgb Conc 33.3 g/dL (32-36); Mean Corpuscular Hgb 29.2 pg (27.0-32.0); Mean Corpuscular Volume 87.5 fL (80-94); Mean Platelet Vol. 9.9 fl (6.2-12.0); Monocyte# 0.46 X10^3/uL; Monocyte% 10.4 % (0-10); NRBC Flagged by Analyzer 0 % (0-5); Neutrophil # 2.12 X10^3/uL (2.7-7.7); Platelet Count 299 K/mm3 (150-450); RBC Distribution Width CV 12.5 % (11.6-14.6); RBC Distribution Width SD 39.8 fl (35.1-43.9); Red Blood Count 4.39 M/mm3 (4.6-6.2); White Blood Count 4.4 K/mm3 (4.4-11.0)
[2021-12-02 10:36] LABS: ALB/GLOB Ratio 0.8 RATIO (0.9-2.4); AST(SGOT) 20 U/L (15-37); Alanine Aminotransfer ALT/SGPT 32 U/L (16-61); Albumin, Serum 3.3 g/dL (3.2-5.0); Alkaline Phosphatase 84 U/L (45-117); Anion Gap 8 (5-15); BUN 22 mg/dL (7-18); BUN/Creat Ratio 24.2 RATIO (10-20); Calcium,Total 9.3 mg/dL (8.5-10.1); Chloride 106 mmol/L (98-107); Cholesterol 220 mg/dL (200); Creatinine, Serum 0.91 mg/dL (0.70-1.30); EST Glomerular Filtration Rate 91 mL/min (>60); Est Glom Filt Rate - Afr Amer 111 mL/min (>60); Globulin 4.1 g/dL (2.2-4.2); Glucose 96 mg/dL (74-106); High Density Lipoprotein 41 mg/dL; Potassium 3.7 mmol/L (3.5-5.1); Protein, Total 7.4 g/dL (6.4-8.2); Sodium Level 139 mmol/L (136-145); Thyroid Stim Hormone (TSH) 1.33 uIU/mL (0.358-3.74); Triglycerides 195 mg/dL; Very Low Density Lipoprotein 39 mg/dL (5-40)
[2021-12-02 13:10] LABS: Hemoglobin A1c 5.4 % (3.8-5.6)
== END 2021-12-02 23:59 | disposition short-term general hospital (02) ==
LOC: MFPLAB 08:58
PROVIDERS: PCP Family Medicine; Visit Provider Family Medicine
DX: I10 Essential (primary) hypertension (principal); R73.02 Impaired glucose tolerance (oral)
CPT/HCPCS: 36415; 80053; 80061; 81002; 83036; 84443; 85025

== ENCOUNTER → 2022-06-10 | Outpatient (CLI) | payer OTHER, SELFPAY ==
[2022-06-10 08:37] LABS: Bacteria 0 SEEN /hpf (None Seen); Mucous, Urine 0 SEEN /hpf (<or=2+); Red Blood Cells-Urine 0 SEEN /hpf (0-5); White Blood Cells 0 SEEN /hpf (0-5)
[2022-06-10 10:18] LABS: Absolute Lymphocyte Count 1.83 X10^3/uL (0.83-4.51); Absolute Neutrophil Count 2.3 X10^3/uL (2.0-7.7); Eosinophils% 5.9 % (0-5); Hematocrit 41.5 % (40-54); Hemoglobin 13.8 g/dL (13.0-16.5); Lymphocyte # 1.83 X10^3/ul (0.83-4.51); Mean Corp Hgb Conc 33.3 g/dL (32-36); Mean Corpuscular Hgb 29.9 pg (27.0-32.0); Mean Corpuscular Volume 89.8 fL (80-94); Mean Platelet Vol. 10.1 fl (6.2-12.0); Monocyte# 0.56 X10^3/uL; NRBC Flagged by Analyzer 0 % (0-5); Neutrophil % 45.1 % (47-70); Platelet Count 310 K/mm3 (150-450); RBC Distribution Width CV 12.6 % (11.6-14.6); Red Blood Count 4.62 M/mm3 (4.6-6.2); White Blood Count 5.1 K/mm3 (4.4-11.0)
[2022-06-10 10:32] LABS: Color, Urine Yellow (Yellow); Glucose, Dipstick Normal (Normal); Ketone-Dipstick Negative (Negative); Leukocyte Esterase-Dipstick Negative /ul (Negative); Nitrite-Dipstick Negative (Negative); Occult Blood-Urine Negative /ul (Negative); Protein-Dipstick Negative (Negative); Urine Bilirubin Dipstick Negative (Negative); Urine Clarity Clear (Clear); Urine Urobilinogen Normal (Normal)
[2022-06-10 10:41] LABS: AST(SGOT) 24 U/L (15-37); Alanine Aminotransfer ALT/SGPT 47 U/L (16-61); Albumin, Serum 3.8 g/dL (3.2-5.0); Alkaline Phosphatase 75 U/L (45-117); Anion Gap 8 (5-15); BUN 24 mg/dL (7-18); BUN/Creat Ratio 26.5 RATIO (10-20); Calcium,Total 9.6 mg/dL (8.5-10.1); Chloride 106 mmol/L (98-107); EST Glomerular Filtration Rate 92 mL/min (>60); Est Glom Filt Rate - Afr Amer 111 mL/min (>60); Globulin 3.8 g/dL (2.2-4.2); Glucose 102 mg/dL (74-106); PSA,Total - Annual Screen 1.58 ng/mL (0.00-4.00); Potassium 3.8 mmol/L (3.5-5.1); Protein, Total 7.6 g/dL (6.4-8.2); Sodium Level 138 mmol/L (136-145)
[2022-06-10 10:46] LABS: Squamous Epithelial Cells - UA 0-5 SEEN /hpf (0-5)
[2022-06-10 10:49] LABS: Hemoglobin A1c 5.5 % (3.8-5.6)
== END | disposition home or self-care (01) ==
LOC: MFPLAB 08:33
PROVIDERS: PCP Family Medicine; Visit Provider Family Medicine
DX: I10 Essential (primary) hypertension (principal); R73.02 Impaired glucose tolerance (oral); Z12.5 Encounter for screening for malignant neoplasm of prostate
CPT/HCPCS: 36415; 80053; 81001; 83036; 84153; 85025; G0103

== ENCOUNTER 2022-08-06 06:54 | Day surgery (SDC) | payer OTHER, SELFPAY ==
[2022-08-06] VITALS (7 sets, daily range): BP systolic 106–145; BP diastolic 78–89; PULSE 57–75; RESP 16–18; TEMP 36.2–36.4; O2SAT 95–98; BMI 36.6
--- NOTE | 2022-08-06 | COLBX_PTH ---
PATIENT: CONNER LLOYD LOC: EN U#:[id number] AGE/SX: 57/M ROOM: RE08/06/[address]: Dr. Tess Arriaga MD : 1965 BED: DIS: 08/06/2022 SPEC #: [id number] RECD: 08/06/22 09:51 STATUS: AYESHA MILLIE #: [id number] BRUNA: 08/06/22 00:[address]: Tess Arriaga DEPT: SURGICAL PATHOLOGY RECD BY: Trey Sanchez ENTERED: 08/06/22 09:52 SP TYPE: COLON BX FRANCESCO DR: Dr. Rickey Huerta MD Tissues: A - Ascending colon B - Descending colon C - Rectum, NOS Procedures: Surgery Specimen Level IV HEADER OPERATION: Colonoscopy ? open access (MAC) PRE-OP DIAGNOSIS: History of colonic polyps TISSUE SUBMITTED: A ? Ascending colon polyp biopsy, B ? Descending colon polyp biopsy, C ? Rectum polyp biopsy MICROSCOPIC DIAGNOSIS A. Ascending colon polyp, biopsy: Tubular adenoma. B. Descending colon polyp, biopsy: A fragment of colonic mucosa, no pathologic diagnosis. C. Rectal polyp, biopsy: Hyperplastic polyp. LESLIE:thuy 08/07/2022 MICROSCOPIC DESCRIPTION Slides are reviewed. GROSS DESCRIPTION A - Received in fixative is one container labeled with the patient's name and designated biopsy of ascending colon polyp. The specimen consists of one irregular fragment of light rodrigez soft tissue that measures 0.4 x 0.4 x 0.1 cm. The specimen is totally submitted in one cassette. B - Received in fixative is one container labeled with the patient's name and designated biopsy of descending colon polyp. The specimen consists of one irregular fragment of light rodrigez soft tissue that measures 0.4 x 0.2 x 0.1 cm. The specimen is totally submitted in one cassette. C - Received in fixative is one container labeled with the patient's name and designated biopsy of rectum polyp. The specimen consists of one irregular fragment of light rodrigez soft tissue that measures 0.4 x 0.4 x 0.1 cm. The specimen is totally submitted in one cassette. / LESLIE:thuy 08/06/2022 TC:1 CPT: 84125 x3
--- NOTE | 2022-08-06 07:04 | H&P.OPEN ---
HPI - General HPI Narrative CONNER LLOYD, is a 57 M who presents for screening colonoscopy due to hx of polyps-tubular adenoma, last colonoscopy was 11/03/2016. Patient has bowel moods daily denies any blood. Patient denies any chronic abdominal pain/nausea/vomiting/reflux. No family history of colon cancer. [facility] Medical History Essential (primary) hypertension Glucose intolerance (impaired glucose tolerance) Heartburn History of stress test Hx of colonic polyps Male erectile dysfunction, unspecified Non-smoker Seasonal allergies Wears glasses Wears partial dentures Home Medications lisinopril 10 mg tablet 10 mg PO DAILY 10/28/16 [History Last Taken 09/15/19] hydrochlorothiazide 25 mg tablet 25 mg PO DAILY 03/05/19 [History Last Taken 09/15/19] tadalafil 10 mg tablet (Cialis) 10 mg PO DAILY PRN Edema 06/23/22 [History Last Taken Unknown] Allergy/AdvReac Type Severity Reaction Status Date / Time No Known Allergies Allergy Verified 08/01/22 13:18 Surgical History History of colonoscopy History of cystoscopy Social History (Updated 06/23/22 @ 08:27 by Savana Horowitz) household members: spouse current occupational status: employed current occupation: Research Nurse, own business Smoking Status: Never smoker Past Medical/Surgical History Planned Operation Planned Operative Procedure/s: Colonoscopy S.O.S: No Previous Hospitalizations/Surgeries HX Hospitalizations: No HX of Surgeries: WISDOM TEETH repair right thumb/tendon colonoscopy 2016 Any Problems With Anesthesia: No You/Your Family Experience Fever (Hyperthermia) With Anes: No Cholinesterase deficiency: No Cardiovascular Hx Chest Pain within Last 2 months: No Hx of Irregular Heartbeat and/or Afib: No Hx Heart Attack: No Hx Congestive Heart Failure: No Hx Rheumatic Fever: No Hx Hypertension: Yes (per pt, controlled on meds) Hx Internal Defibrillator: No Hx Pacemaker: No Hx Cardiac Catheterization: No Hx Cardiac Surgery/Stents/Etc.: No Hx Stress Test: Yes (2013/ stress echo 2017) Hx Pain in Legs when Walking/Leg Cramps: No Respiratory Chronic Cough: No HX of Shortness of Breath: No (denies) Hoarseness: No Hx Chronic Obstructive Pulmonary Disease (COPD): No Hx Asthma: No Hx Emphysema: No Hx Sleep Apnea: No CPAP: No Hx Respiratory Tract Infection/Cold (presently): No Do You Snore Loudly (louder than talking or can be heard): No Do You Often Feel Tired/ Fatigued/ Sleepy Dring Daytime?: No Has Anyone Observed You Stop Breathing During Sleep?: No Result (for STOP score): Negative Hx Smoking: No Smoking Status: Never smoker Gastrointestinal Hx Gastroesophageal Reflux: No Hx Gastrointestinal Disorders: Yes (hx polyp/removed) Hx Gastrointestinal Bleed: No Hx Ulcer: No Hx Hiatal Hernia: No Difficulty Chewing/Swallowing: No Special diet followed at home: No Hx Unplanned Weight Loss of 20#: No HX Unplanned Weight Gain of 20#: No Neurological Hx Seizures: No HX Syncope/Blackout Spells/Unconsciousness: No Hx Transient Ischemic Attacks (TIA): No Hx Multiple Sclerosis: No Hx Parkinson's Disease: No Hx Head/Neck Injury: No Hx Headaches: No Hx Back Injury/Pain: No Recent Onset of Speech Difficulty: No Restless Legs: No Does patient have nerve stimulator: No Blood Disorder Hx Leukemia: No Bleeding Tendencies: No Hx Deep Vein Thrombosis: No Hx High Cholesterol: No Blood Transmitted Disease: No Hx Hepatitis: No Hx Cirrhosis: No Hx Anemia: No Hx Blood Disorders: No Genitourinary Hx Renal Disease: Yes (hx stones) Hx Dialysis: No Musculoskeletal Hx Arthritis: No Hx Rheumatoid Arthritis: No Hx Gout: No Recent Onset of an Orthopedic Problem: No Endocrine Hx Diabetes: No Thyroid Disease: No Hx Steroid Therapy: No Psycho/Social Hx Substance Use: No Hx Alcohol Use: No Hx Anxiety: No Hx Depression: No Mental Illness: No Hx Dementia: No Miscellaneous Hx Cancer: No Recent Exposure to Contagious Disease: No Hx of C-Diff: No Any Loose Teeth: Yes (partial plate) Allergies No Known Allergies Allergy (Verified 08/01/22 13:18) Discharge Is Pt Admitted From a Penitentiary, or a [place] [facility]: No Who Could Help: After D/C, Where Do you Plan to Go: Return Home Physical Exam Const alert, oriented x3 and no apparent distress HEENT normocephalic and head/scalp atraumatic Resp normal respiratory effort Cardio regular rate Rate: regular rate GI soft to palpation and non-tender; Negative for non-distended Palpation: Negative for guarding Extremity no clubbing, cyanosis or edema Neuro CN's II-XII intact bilaterally Psych mental status grossly normal Assessment & Plan Assessment/Plan (1) Hx of colonic polyps: Procedure Criteria Type of Procedure Procedure Type: Elective Elective Risks - COVID COVID Risk Discussion: The surgeon/proceduralist and patient have discussed in detail the risk of exposure to and/or potential harm posed by the COVID-19 virus with having a surgery/procedure at this time versus the risk of delaying the surgery/procedure. It is not possible to know either the risk of delaying the surgery or procedure or chance of getting an infection with perfect accuracy, but a joint decision was made between the patient and the surgeon/proceduralist to proceed at this time with the scheduled surgery/procedure as indicated on the consent form. Surgery Risks - Colonoscopy Risks Include but are not Limited To: Risks include but are not limited to: Bleeding, perforation requiring further surgery, inability to complete colonoscopy requiring barium enema.
[2022-08-06] MEDS: Lactated Ringers 1,000 ML 15 ML IV (07:15)
--- NOTE | 2022-08-06 08:43 | OP.COLON_ITS ---
Patient Name: Roger Dillon Procedure Date: 08/06/2022 8:05 AM Date of : 1965 Age: 57 Procedure: Colonoscopy Indications: Surveillance: Personal history of adenomatous polyps on last colonoscopy > 5 years ago Providers: Tess Arriaga MD Medicines: Monitored Anesthesia Care Patient Profile: This is a 57 year old male. Last Colonoscopy: 2015. Complications: No immediate complications. Procedure: Pre-Anesthesia Assessment: - Prior to the procedure, a History and Physical was performed, and patient medications and allergies were reviewed. The patient's tolerance of previous anesthesia was also reviewed. The risks and benefits of the procedure and the sedation options and risks were discussed with the patient. All questions were answered, and informed consent was obtained. Prior Anticoagulants: The patient has taken no previous anticoagulant or antiplatelet agents. ASA Grade Assessment: Per anesthesia. After reviewing the risks and benefits, the patient was deemed in satisfactory condition to undergo the procedure. After I obtained informed consent, the scope was passed under direct vision. Throughout the procedure, the patient's blood pressure, pulse, and oxygen saturations were monitored continuously. The colonoscope was introduced through the anus and advanced to the cecum, identified by the appendiceal orifice, ileocecal valve and palpation. The colonoscopy was performed without difficulty. The patient tolerated the procedure well. The quality of the bowel preparation was good. Scope In: 8:12:35 AM Scope Withdrawal Time 0 hours 16 minutes 43 seconds Scope Out: 8:33:22 AM Total Procedure Duration Time 0 hours 20 minutes 47 seconds Findings: The perianal and digital rectal examinations were normal. Three sessile polyps were found in the rectum, descending colon and ascending colon. The polyps were less than 5 mm in size. These polyps were removed with a cold biopsy forceps. Resection and retrieval were complete. The exam was otherwise without abnormality on direct and retroflexion views. Impression: - Three less than 5 mm polyps in the rectum, in the descending colon and in the ascending colon, removed with a cold biopsy forceps. Resected and retrieved. - The examination was otherwise normal on direct and retroflexion views. Recommendation: - Discharge patient to home. - Resume previous diet. - Continue present medications. - Await pathology results. - Repeat colonoscopy in 5 years for surveillance based on pathology results. Procedure Code(s): --- Professional --- 62723, PT, Colonoscopy, flexible; with biopsy, single or multiple Diagnosis Code(s): --- Professional --- Z86.010, Personal history of colonic polyps K62.1, Rectal polyp D12.4, Benign neoplasm of descending colon D12.2, Benign neoplasm of ascending colon CPT copyright 2017 [employer]. All rights reserved. The codes documented in this report are preliminary and upon machine scallop cutter review may be revised to meet current compliance requirements. MD Tess Quiles MD 08/06/2022 8:43:11 AM This report has been signed electronically. Number of Addenda: 0 Note Initiated On: 08/06/2022 8:05 AM
--- NOTE | 2022-08-06 08:44 | OP.CCLET_ITS ---
08/06/2022 Rickey Huerta [address] [place] [address] Re : Colonoscopy procedure for Roger Dillon Dear Dr. Huerta This procedure was performed on Saturday, August 06, 2022. My impressions and recommendations are as follows: Impressions : - Three less than 5 mm polyps in the rectum, in the descending colon and in the ascending colon, removed with a cold biopsy forceps. Resected and retrieved. - The examination was otherwise normal on direct and retroflexion views. Recommendations : - Discharge patient to home. - Resume previous diet. - Continue present medications. - Await pathology results. - Repeat colonoscopy in 5 years for surveillance based on pathology results. My findings are described in the full procedure note, which is enclosed. If I can be of further assistance, please feel free to contact me at Doctor phone number(s): , Work: . Sincerely, MD Tess Quiles MD 08/06/2022 8:43:11 AM This report has been signed electronically.
== END 2022-08-06 09:43 | disposition home or self-care (01) ==
LOC: EN 06:58 → AC 06:59
PROVIDERS: PCP Family Medicine; Referring Provider Family Medicine; Visit Provider Surgery
PROC: 0DJD8ZZ Inspection of Lower Intestinal Tract, Via Natural or Artificial Opening Endoscopic (ICD-10-PCS; CPT 45378; principal; 2022-08-06 07:55)
DX: D12.2 Benign neoplasm of ascending colon (principal); Z86.010 Personal history of colon polyps; Z90.49 Acquired absence of other specified parts of digestive tract; I10 Essential (primary) hypertension; Z79.899 Other long term (current) drug therapy; K63.5 Polyp of colon
CPT/HCPCS: 45380; 88305; J7120; J2405

== ENCOUNTER → 2023-08-13 | Outpatient (CLI) | payer OTHER, SELFPAY ==
[2023-08-13 08:50] LABS: Bacteria 0 SEEN /hpf (None Seen); Mucous, Urine 0 SEEN /hpf (<or=2+); Red Blood Cells-Urine 0 SEEN /hpf (0-5); Squamous Epithelial Cells - UA 0 SEEN /hpf (0-5); White Blood Cells 0 SEEN /hpf (0-5)
[2023-08-13 10:15] LABS: Absolute Lymphocyte Count 1.32 X10^3/uL (0.83-4.51); Absolute Neutrophil Count 2.6 X10^3/uL (2.0-7.7); Basophil# 0.09 X10^3/uL; Basophil% 1.9 % (0-1); Eosinophil# 0.24 X10^3/uL; Eosinophils% 5.1 % (0-5); Hematocrit 39.5 % (40-54); Hemoglobin 13.3 g/dL (13.0-16.5); Lymphocyte # 1.32 X10^3/ul (0.83-4.51); Lymphocyte % 27.9 % (19-41); Mean Corp Hgb Conc 33.7 g/dL (32-36); Mean Corpuscular Hgb 29.7 pg (27.0-32.0); Mean Corpuscular Volume 88.2 fL (80-94); Mean Platelet Vol. 9.7 fl (6.2-12.0); Monocyte# 0.51 X10^3/uL; Monocyte% 10.8 % (0-10); NRBC Flagged by Analyzer 0 % (0-5); Neutrophil # 2.55 X10^3/uL (2.7-7.7); Neutrophil % 53.9 % (47-70); Platelet Count 280 K/mm3 (150-450); RBC Distribution Width CV 12.7 % (11.6-14.6); RBC Distribution Width SD 41.4 fl (35.1-43.9); Red Blood Count 4.48 M/mm3 (4.6-6.2); White Blood Count 4.7 K/mm3 (4.4-11.0)
[2023-08-13 10:19] LABS: Color, Urine Yellow (Yellow); Glucose, Dipstick Normal (Normal); Ketone-Dipstick Negative (Negative); Leukocyte Esterase-Dipstick Negative /ul (Negative); Nitrite-Dipstick Negative (Negative); Occult Blood-Urine Negative /ul (Negative); Protein-Dipstick Negative (Negative); Specific Gravity, Urine 1.015 (1.002-1.030); Urine Bilirubin Dipstick Negative (Negative); Urine Clarity Clear (Clear); Urine Urobilinogen Normal (Normal)
[2023-08-13 10:42] LABS: Vitamin B12 451 pg/mL (211-911)
[2023-08-13 10:49] LABS: Hemoglobin A1c 5.6 % (3.8-5.6)
[2023-08-13 10:56] LABS: AST(SGOT) 31 U/L (15-37); Alanine Aminotransfer ALT/SGPT 44 U/L (16-61); Albumin, Serum 3.6 g/dL (3.2-5.0); Alkaline Phosphatase 88 U/L (45-117); Anion Gap 6 (5-15); BUN 15 mg/dL (7-18); BUN/Creat Ratio 15.6 RATIO (10-20); Calcium,Total 9.3 mg/dL (8.5-10.1); Chloride 107 mmol/L (98-107); Cholesterol 238 mg/dL (200); Creatinine, Serum 0.96 mg/dL (0.70-1.30); EST Glomerular Filtration Rate 85 mL/min (>60); Est Glom Filt Rate - Afr Amer 103 mL/min (>60); Ferritin 36 ng/mL (26-388); Globulin 3.7 g/dL (2.2-4.2); Glucose 114 mg/dL (74-106); High Density Lipoprotein 50 mg/dL; Iron 81 ug/dL (65-175); Iron Binding Capacity,Total 345 ug/dL (250-450); PSA,Total - Annual Screen 1.58 ng/mL (0.00-4.00); Potassium 3.8 mmol/L (3.5-5.1); Protein, Total 7.3 g/dL (6.4-8.2); Sodium Level 138 mmol/L (136-145); Thyroid Stim Hormone (TSH) 0.82 uIU/mL (0.358-3.74); Triglycerides 237 mg/dL; Very Low Density Lipoprotein 47 mg/dL (5-40)
== END | disposition home or self-care (01) ==
LOC: MFPLAB 08:48
PROVIDERS: PCP Family Medicine; Visit Provider Family Medicine
DX: I10 Essential (primary) hypertension (principal); R73.02 Impaired glucose tolerance (oral); D64.9 Anemia, unspecified; Z12.5 Encounter for screening for malignant neoplasm of prostate
CPT/HCPCS: 36415; 80053; 80061; 81001; 82607; 82728; 82746; 83036; 83540; 83550; 84153; 84443; 85025; G0103

== ENCOUNTER → 2023-09-08 | Outpatient (CLI) | payer OTHER, SELFPAY ==
--- NOTE | 2023-09-08 10:03 | VDLE_ITS ---
Reason For Study: pain RIGHT GSV is normal. CFV is compressible, spontaneous, phasic, competent and demonstrates normal augmentation. FV is compressible, spontaneous, phasic, competent and demonstrates normal augmentation. POP V is compressible, spontaneous, phasic, competent and demonstrates normal augmentation. T/P Trunk is compressible. PTV is compressible. RT PerV is compressible. Procedure This is a venous duplex using B-mode, color flow and spectral Doppler. Exam performed in department. The exam was abbreviated due to the COVID 19 protocol. The exam was diagnostic. A preliminary report was called and/or faxed to Dr. Bustillos's office. VL/Venous Duplex US, Unilateral Interpretation Summary Deep veins of the right lower extremity are patent and compressible segmentally . There is no evidence of right lower extremity deep vein thrombosis. The right great sapheno us vein appears patent and compressible segmentally. Ordering Physician: Kelly Bustillos Performed By: [place] RVT
== END | disposition home or self-care (01) ==
PROVIDERS: PCP Family Medicine; Visit Provider Family Medicine
DX: M79.604 Pain in right leg (principal)
CPT/HCPCS: 93971

== ENCOUNTER → 2023-09-09 | Outpatient (CLI) | payer OTHER, SELFPAY ==
[2023-09-09 12:55] LABS: CRP < 2.90 mg/L (0.0-3.0)
[2023-09-10 12:09] LABS: ANTINUCLEAR ANTIBODIES DIRECT Negative (Negative)
== END | disposition home or self-care (01) ==
LOC: MFPLAB 09:49
PROVIDERS: Family Medicine; PCP Family Medicine; Visit Provider Family Medicine
DX: M79.604 Pain in right leg (principal)
CPT/HCPCS: 36415; 85379; 86038; 86140

== ENCOUNTER → 2023-12-15 | Outpatient (CLI) | payer OTHER, SELFPAY ==
--- OUTSIDE RECORDS SUMMARY | 2023-12-15 07:18 | XMS RPT_ITS | CCD ---
Author Name Unknown Address [email or web address] [place] [address] Organization [facility] Results Test Name Value Interpretation Reference Range Facil ity Summary Purpose Family History No Family History Records Found Advance Directives No Advanced Directives Records Found Additional Source Comments (unrecognized sect ion and content) No Status Records Found INFORMATION SOURCE (unrecogn ized section and content) FOR RECORDS PERTAINING TO PATIENTS WHO ARE OR HAVE BEEN ENROLLED IN A CHEMICAL DEPENDENCY/SUBSTANCEABUSE PROGRAM, SOME INFORMATION MAY BE OMITTED. This clinical summary was aggregated from multiple sources. Caution should be exercised in using it in the provision of clinical care. This summary normalizes information from multiple sources, and as a consequence, information in this document may materially change the coding, format and clinical context of patient data. In addition, data may be omitted in some cases. CLINICAL DECISIONS SHOULD BE BASED ON THE PRIMARY CLINICAL RECORDS. [facility] [employer] provides no warranty or guarantee of the accuracy or completeness of information in this document.
[2023-12-15 15:41] LABS: Bacteria 0 SEEN /hpf (None Seen); Mucous, Urine 0 SEEN /hpf (<or=2+); Red Blood Cells-Urine 0 SEEN /hpf (0-5); Squamous Epithelial Cells - UA 0 SEEN /hpf (0-5); White Blood Cells 0 SEEN /hpf (0-5)
[2023-12-15 17:59] LABS: Absolute Lymphocyte Count 2.56 X10^3/uL (0.83-4.51); Absolute Neutrophil Count 2.4 X10^3/uL (2.0-7.7); Basophil# 0.08 X10^3/uL; Basophil% 1.3 % (0-1); Eosinophil# 0.34 X10^3/uL; Eosinophils% 5.7 % (0-5); Hematocrit 37.3 % (40-54); Hemoglobin 12.8 g/dL (13.0-16.5); Lymphocyte # 2.56 X10^3/ul (0.83-4.51); Lymphocyte % 42.7 % (19-41); Mean Corp Hgb Conc 34.3 g/dL (32-36); Mean Corpuscular Hgb 29.1 pg (27.0-32.0); Mean Corpuscular Volume 84.8 fL (80-94); Mean Platelet Vol. 9.4 fl (6.2-12.0); Monocyte# 0.57 X10^3/uL; Monocyte% 9.5 % (0-10); NRBC Flagged by Analyzer 0 % (0-5); Neutrophil # 2.44 X10^3/uL (2.7-7.7); Neutrophil % 40.6 % (47-70); Platelet Count 300 K/mm3 (150-450); RBC Distribution Width CV 12.2 % (11.6-14.6); RBC Distribution Width SD 37.6 fl (35.1-43.9)
[2023-12-15 18:07] LABS: Color, Urine Yellow (Yellow); Glucose, Dipstick Normal (Normal); Ketone-Dipstick Negative (Negative); Leukocyte Esterase-Dipstick Negative /ul (Negative); Nitrite-Dipstick Negative (Negative); Occult Blood-Urine Negative /ul (Negative); Protein-Dipstick Negative (Negative); Urine Bilirubin Dipstick Negative (Negative); Urine Clarity Clear (Clear); Urine Urobilinogen Normal (Normal)
[2023-12-15 18:19] LABS: AST(SGOT) 25 U/L (15-37); Alanine Aminotransfer ALT/SGPT 41 U/L (16-61); Albumin, Serum 3.5 g/dL (3.2-5.0); Alkaline Phosphatase 104 U/L (45-117); Anion Gap 6 (5-15); BUN 17 mg/dL (7-18); Calcium,Total 9.5 mg/dL (8.5-10.1); Chloride 107 mmol/L (98-107); Cholesterol 217 mg/dL (200); Creatinine, Serum 0.89 mg/dL (0.70-1.30); EST Glomerular Filtration Rate 92 mL/min (>60); Est Glom Filt Rate - Afr Amer 112 mL/min (>60); Globulin 3.6 g/dL (2.2-4.2); Glucose 105 mg/dL (74-106); Hemoglobin A1c 5.4 % (3.8-5.6); High Density Lipoprotein 41 mg/dL; Magnesium 2.4 mg/dL (1.6-2.6); Protein, Total 7.1 g/dL (6.4-8.2); Sodium Level 139 mmol/L (136-145); Thyroid Stim Hormone (TSH) 1.76 uIU/mL (0.358-3.74); Triglycerides 269 mg/dL; Very Low Density Lipoprotein 54 mg/dL (5-40)
== END | disposition home or self-care (01) ==
PROVIDERS: PCP Family Medicine; Referring Provider Student in an Organized Health Care Education/Training Program; Visit Provider Student in an Organized Health Care Education/Training Program
DX: Z01.818 Encounter for other preprocedural examination (principal); Z01.810 Encounter for preprocedural cardiovascular examination; I10 Essential (primary) hypertension; R73.02 Impaired glucose tolerance (oral)
CPT/HCPCS: 36415; 80053; 80061; 81001; 83036; 83735; 84443; 85025; 93005

== ENCOUNTER → 2023-12-18 | Outpatient (CLI) | payer OTHER, SELFPAY ==
--- OUTSIDE RECORDS SUMMARY | 2023-12-18 08:24 | XMS RPT_ITS | CCD ---
Author Name Unknown Address [email or web address] [place] [address] Organization [facility] Results Test Name Value Interpretation [...] BE BASED ON THE PRIMARY CLINICAL RECORDS. [facility] [employer] provides no warranty or guarantee of the accuracy or completeness of information in this document.
[2023-12-18 10:29] LABS: Vitamin B12 373 pg/mL (211-911)
[2023-12-18 10:56] LABS: Ferritin 34 ng/mL (26-388); Iron 80 ug/dL (65-175); Iron Binding Capacity,Total 365 ug/dL (250-450); PERCENT IRON SATURATION 21.9 % (15.0-55.0); Potassium 3.7 mmol/L (3.5-5.1)
== END | disposition home or self-care (01) ==
LOC: MFPLAB 08:22
PROVIDERS: PCP Family Medicine; Visit Provider Family Medicine
DX: D64.9 Anemia, unspecified (principal); E87.6 Hypokalemia
CPT/HCPCS: 36415; 82607; 82728; 83540; 83550; 84132

== ENCOUNTER → 2024-06-15 | Outpatient (CLI) | payer OTHER, SELFPAY ==
[2024-06-15 09:52] LABS: Bacteria 0 SEEN /hpf (None Seen); Mucous, Urine 0 SEEN /hpf (<or=2+); Red Blood Cells-Urine 0 SEEN /hpf (0-5); Squamous Epithelial Cells - UA 0 SEEN /hpf (0-5); White Blood Cells 0 SEEN /hpf (0-5)
[2024-06-15 12:11] LABS: Color, Urine Yellow (Yellow); Glucose, Dipstick Normal (Normal); Ketone-Dipstick Negative (Negative); Leukocyte Esterase-Dipstick Negative /ul (Negative); Nitrite-Dipstick Negative (Negative); Occult Blood-Urine Negative /ul (Negative); Protein-Dipstick Negative (Negative); Urine Bilirubin Dipstick Negative (Negative); Urine Clarity Clear (Clear); Urine Urobilinogen Normal (Normal)
[2024-06-15 12:12] LABS: Absolute Lymphocyte Count 1.71 X10^3/uL (0.83-4.51); Absolute Neutrophil Count 3.5 X10^3/uL (2.0-7.7); Basophil# 0.08 X10^3/uL; Basophil% 1.3 % (0-1); Eosinophil# 0.26 X10^3/uL; Eosinophils% 4.2 % (0-5); Hematocrit 40.9 % (40-54); Hemoglobin 13.7 g/dL (13.0-16.5); Lymphocyte # 1.71 X10^3/ul (0.83-4.51); Lymphocyte % 27.9 % (19-41); Mean Corp Hgb Conc 33.5 g/dL (32-36); Mean Corpuscular Hgb 29.5 pg (27.0-32.0); Mean Platelet Vol. 10.5 fl (6.2-12.0); Monocyte# 0.58 X10^3/uL; Monocyte% 9.5 % (0-10); NRBC Flagged by Analyzer 0 % (0-5); Neutrophil # 3.48 X10^3/uL (2.7-7.7); Neutrophil % 56.9 % (47-70); Platelet Count 285 K/mm3 (150-450); RBC Distribution Width CV 12.7 % (11.6-14.6); RBC Distribution Width SD 40.7 fl (35.1-43.9); Red Blood Count 4.65 M/mm3 (4.6-6.2); White Blood Count 6.1 K/mm3 (4.4-11.0)
[2024-06-15 12:34] LABS: Hemoglobin A1c 5.4 % (3.8-5.6)
[2024-06-15 12:36] LABS: ALB/GLOB Ratio 0.9 RATIO (0.9-2.4); AST(SGOT) 30 U/L (15-37); Alanine Aminotransfer ALT/SGPT 45 U/L (16-61); Albumin, Serum 3.5 g/dL (3.2-5.0); Alkaline Phosphatase 88 U/L (45-117); Anion Gap 7 (5-15); BUN 20 mg/dL (7-18); BUN/Creat Ratio 20.1 RATIO (10-20); Calcium,Total 10.1 mg/dL (8.5-10.1); Chloride 105 mmol/L (98-107); Cholesterol 236 mg/dL (200); EST Glomerular Filtration Rate 81 mL/min (>60); Est Glom Filt Rate - Afr Amer 99 mL/min (>60); Globulin 3.9 g/dL (2.2-4.2); Glucose 107 mg/dL (74-106); High Density Lipoprotein 48 mg/dL; Potassium 3.6 mmol/L (3.5-5.1); Protein, Total 7.4 g/dL (6.4-8.2); Sodium Level 140 mmol/L (136-145); Triglycerides 255 mg/dL; Very Low Density Lipoprotein 51 mg/dL (5-40)
== END | disposition home or self-care (01) ==
LOC: MFPLAB 09:51
PROVIDERS: PCP Family Medicine; Visit Provider Family Medicine
DX: I10 Essential (primary) hypertension (principal); E87.6 Hypokalemia; R73.02 Impaired glucose tolerance (oral)
CPT/HCPCS: 36415; 80053; 80061; 81001; 83036; 83735; 85025

== ENCOUNTER → 2024-12-07 | Outpatient (CLI) | payer OTHER, SELFPAY ==
[2024-12-07 09:22] LABS: Mucous, Urine 0 SEEN /hpf (<or=2+); Red Blood Cells-Urine 0 SEEN /hpf (0-5); White Blood Cells 0 SEEN /hpf (0-5)
[2024-12-07 10:06] LABS: Absolute Lymphocyte Count 1.47 X10^3/uL (0.83-4.51); Absolute Neutrophil Count 2.3 X10^3/uL (2.0-7.7); Basophil# 0.08 X10^3/uL; Basophil% 1.7 % (0-1); Eosinophil# 0.22 X10^3/uL; Eosinophils% 4.8 % (0-5); Hematocrit 40.2 % (40-54); Hemoglobin 13.5 g/dL (13.0-16.5); Lymphocyte # 1.47 X10^3/ul (0.83-4.51); Lymphocyte % 31.9 % (19-41); Mean Corp Hgb Conc 33.6 g/dL (32-36); Mean Corpuscular Volume 86.3 fL (80-94); Monocyte# 0.52 X10^3/uL; Monocyte% 11.3 % (0-10); NRBC Flagged by Analyzer 0 % (0-5); Neutrophil # 2.31 X10^3/uL (2.7-7.7); Neutrophil % 50.1 % (47-70); Platelet Count 270 K/mm3 (150-450); RBC Distribution Width CV 12.6 % (11.6-14.6); RBC Distribution Width SD 39.8 fl (35.1-43.9); Red Blood Count 4.66 M/mm3 (4.6-6.2); White Blood Count 4.6 K/mm3 (4.4-11.0)
[2024-12-07 12:21] LABS: Color, Urine Yellow (Yellow); Glucose, Dipstick Normal (Normal); Ketone-Dipstick Negative (Negative); Leukocyte Esterase-Dipstick Negative /ul (Negative); Nitrite-Dipstick Negative (Negative); Occult Blood-Urine Negative /ul (Negative); Protein-Dipstick Negative (Negative); Urine Bilirubin Dipstick Negative (Negative); Urine Clarity Clear (Clear); Urine Urobilinogen Normal (Normal)
[2024-12-07 12:49] LABS: Bacteria 1+ /hpf (None Seen); Squamous Epithelial Cells - UA 0-5 SEEN /hpf (0-5)
[2024-12-07 13:02] LABS: ALB/GLOB Ratio 0.9 RATIO (0.9-2.4); AST(SGOT) 32 U/L (15-37); Alanine Aminotransfer ALT/SGPT 41 U/L (16-61); Albumin, Serum 3.5 g/dL (3.2-5.0); Alkaline Phosphatase 78 U/L (45-117); Anion Gap 4 (5-15); BUN 15 mg/dL (7-18); BUN/Creat Ratio 15.8 RATIO (10-20); Calcium,Total 9.6 mg/dL (8.5-10.1); Chloride 106 mmol/L (98-107); Cholesterol 244 mg/dL (200); Creatinine, Serum 0.95 mg/dL (0.70-1.30); EST Glomerular Filtration Rate 86 mL/min (>60); Est Glom Filt Rate - Afr Amer 104 mL/min (>60); Globulin 3.7 g/dL (2.2-4.2); Glucose 101 mg/dL (74-106); High Density Lipoprotein 51 mg/dL; PSA,Total - Annual Screen 1.47 ng/mL (0.00-4.00); Potassium 3.6 mmol/L (3.5-5.1); Protein, Total 7.2 g/dL (6.4-8.2); Sodium Level 138 mmol/L (136-145); Triglycerides 269 mg/dL; Very Low Density Lipoprotein 54 mg/dL (5-40)
[2024-12-07 14:21] LABS: Hemoglobin A1c 5.6 % (3.8-5.6)
== END | disposition home or self-care (01) ==
LOC: MFPLAB 09:20
PROVIDERS: PCP Family Medicine; Referring Provider Family Medicine; Visit Provider Family Medicine
DX: Z12.5 Encounter for screening for malignant neoplasm of prostate (principal); I10 Essential (primary) hypertension; R73.02 Impaired glucose tolerance (oral)
CPT/HCPCS: 36415; 80053; 80061; 81001; 83036; 84153; 85025; G0103

== ENCOUNTER → 2025-06-19 | Outpatient (CLI) | payer OTHER, SELFPAY ==
[2025-06-19 17:56] LABS: Hematocrit 40.3 % (40-54); Hemoglobin 13.9 g/dL (13.0-16.5); Immature Granulocytes Count 0.010 X10^3/uL (0.0-0.0); Mean Corp Hgb Conc 34.5 g/dL (32-36); Mean Corpuscular Volume 84.8 fL (80-94); Mean Platelet Vol. 10.1 fl (6.2-12.0); NRBC Flagged by Analyzer 0 % (0-5); Platelet Count 259 K/mm3 (150-450); RBC Distribution Width CV 12.7 % (11.6-14.6); RBC Distribution Width SD 39.0 fl (35.1-43.9); Red Blood Count 4.75 M/mm3 (4.6-6.2); White Blood Count 5.5 K/mm3 (4.4-11.0)
[2025-06-19 18:40] LABS: Anion Gap 14 (5-15); BUN 15 mg/dL (4-19); BUN/Creat Ratio 16.9 RATIO (10-20); Calcium,Total 9.7 mg/dL (7.6-11.0); Carbon Dioxide 24.4 mmol/L (21.0-32.0); Chloride 98 mmol/L (98-108); Glucose 118 mg/dL (70-99); Potassium 3.2 mmol/L (3.3-5.1)
== END | disposition home or self-care (01) ==
LOC: MFPLAB 16:09
PROVIDERS: PCP Family Medicine; Referring Provider Family Medicine; Visit Provider Family Medicine
DX: R53.83 Other fatigue (principal)
CPT/HCPCS: 36415; 80048; 84403; 84443; 85025